=== PATIENT | male | born 1950 | race Hispanic/Latino ===

== ENCOUNTER → 2017-09-16 | Outpatient (CLI) | payer OTHER ==
[~2017-09-16] MED LIST: TAMS0.4C32 PO
== END | disposition home or self-care (01) ==
LOC: RAH 14:53
PROVIDERS: ATTEND Family Medicine
DX: G31.9 Degenerative disease of nervous system, unspecified (principal); J32.0 Chronic maxillary sinusitis; R90.82 White matter disease, unspecified
CPT/HCPCS: 70551

== ENCOUNTER 2019-06-22 07:27 | Day surgery (SDC) | payer OTHER, MEDICARE ==
[2019-06-19 14:34] LABS: BASOPHILS % (AUTO) 0.8 % (0.0-5.0); EOSINOPHILS % (AUTO) 2.5 % (0.0-8.0); HEMATOCRIT 42.9 % (42-54); LYMPHOCYTES % (AUTO) 19.5 % (21.0-51.0); MEAN CORPUSCULAR HEMOGLOBIN 30.8 pg (27.0-33.0); MEAN CORPUSCULAR HGB CONC 34.6 g/dL (32.0-36.0); MONOCYTES % (AUTO) 11.1 % (3.0-13.0); NEUTROPHILS % (AUTO) 66.1 % (40.0-77.0); NUCLEATED RED BLOOD CELLS 0.1 % (0.0-0.19); PLATELET COUNT (AUTO) 143 K/uL (130-400); RED BLOOD CELL COUNT(AUTO) 4.82 MIL/uL (4.50-6.20); RED CELL DISTRIBUTION WIDTH 14.3 % (11.0-15.5); WHITE BLOOD COUNT (AUTO) 6.6 K/uL (4.8-10.8)
[2019-06-19 14:36] VITALS: BP 161/73
[2019-06-19 14:41] LABS: CREATININE 0.9 mg/dL (0.5-1.5); POTASSIUM 4.3 mmol/L (3.5-5.1)
[2019-06-22] VITALS (15 sets, daily range): BP systolic 129–175; BP diastolic 72–93
[~2019-06-22] VITALS: Ht 167.6 cm; Wt 102.1 kg
[~2019-06-22 07:27] MED LIST changes: +APIX5TAB PO; +ATOR10TA69 PO; +CITA-107 PO; +DRON400T2 PO; +LISI-613 PO; +SODIUM CHLORIDE 0.9% 500ML 500 ML IV SCH
[2019-06-22] MEDS ORDERED: SODIUM CHLORIDE 0.9% 1000ML 1,000 ML IV ONE (07:32)
--- NOTE | 2019-06-22 07:40 | NUR ---
PATIENT ARRIVED PATIENT ARRIVED FROM HOME ACCOMPANIED BY SPOUSE. PATIENT AAO X3, RESPIRATIONS UNLABORED, VITAL SIGNS STABLE, DENIES ANY PAIN AT THIS TIME. PROCEDURE EXPLAINED AND VERIFIED WITH PATIENT. HOSPITAL ROUTINE EXPLAINED TO PATIENT AND PATIENT VERIFIED UNDERSTANDING. ALL QUESTIONS/CONCERNS ADDRESSED.
[2019-06-22] MEDS ORDERED: NALOXONE HCL 0.4 MG/1 ML ML ONE (07:45)
[2019-06-22] MEDS ORDERED: FLUMAZENIL 0.1MG/1ML 5ML VIAL IV ONE (07:45)
[2019-06-22] MEDS ORDERED: MIDAZOLAM HCL 1 MG/ML 2ML VIAL ONE ×2 (07:47→08:51)
[2019-06-22] MEDS ORDERED: FENTANYL CITRATE PF 50 MCG/1 ML 2ML VIAL ONE (07:52)
--- NOTE | 2019-06-22 10:30 | NUR ---
CARDIOVERSION TIME OUT DONE AT 10:[address] MARIE AT BEDSIDE 1033 2MG VERSED ADMINISTERED IV PUSH 1034 50MCG FENTANYL ADMINISTERED IV PUSH 1037 1MG VERSED ADMINISTERED IV PUSH 1039 25MCG FENTANYL ADMINISTERED IV PUSH 1040 PATIENT SHOCKED WITH 150 JOULES (CARDIOVERSION) 1041 25MCG FENTANYL ADMINISTERED IV PUSH 1042 PATIENT ADMINISTERED SECOND SHOCK, 200 JOULES (CARDIOVERSION) PATIENT TOLERATED WELL, DENIES ANY PAIN. PATIENT DROWSY BUT RESPONDS TO VERBAL STIMULATION. 1045 DR MARIE OUT OF ROOM AND RECOVERY TIME BEGINS
--- NOTE | 2019-06-22 12:15 | NUR ---
DISCHARGE INSTRUCTIONS DISCHARGE INSTRUCTIONS PROVIDED TO PATIENT AND PATIENT'S SPOUSE. HANDOUTS PROVIDED, FOLLOW UP APPOINTMENT WITH DR SHABAZZ PROVIDED. INSTRUCTED TO RESUME HOME MEDICATIONS. ALL QUESTIONS/CONCERNS ANSWERED. BOTH PATIENT AND PATIENT'S SPOUSE VERBALIZED UNDERSTANDING.
--- NOTE | 2019-06-22 12:40 | NUR ---
PATIENT DISCHARGED PATIENT DISCHARGED FROM FACILITY ACCOMPANIED BY SPOUSE. PATIENT TAKEN TO PRIVATE VEHICLE VIA WHEELCHAIR BY NURSE, PATIENT ABLE TO TRANSFER INTO PRIVATE VEHICLE UNASSISTED. PATIENT DRIVEN IN PRIVATE VEHICLE BY SPOUSE.
== END 2019-06-22 12:40 | disposition home or self-care (01) ==
LOC: DAH 07:27
PROVIDERS: ATTEND Internal Medicine Cardiovascular Disease
DX: I48.19 Other persistent atrial fibrillation (principal); Z79.01 Long term (current) use of anticoagulants; Z79.899 Other long term (current) drug therapy; N40.0 Benign prostatic hyperplasia without lower urinary tract symptoms; I10 Essential (primary) hypertension; Z72.89 Other problems related to lifestyle; Z98.890 Other specified postprocedural states; Z82.49 Family history of ischemic heart disease and other diseases of the circulatory system; Z82.3 Family history of stroke
CPT/HCPCS: 36415; 80048; 85025; 92960; 93005 ×2; A4215; A4216; A4221; A4222; A4223 ×3; A4600; A4606; A4663; J2250; J3010; J7030; 99156; J2310; J3490

== ENCOUNTER 2019-07-21 06:22 | Day surgery (SDC) | payer OTHER, MEDICARE ==
[2019-07-17 09:12] VITALS: BP 150/82
[2019-07-17 09:27] LABS: BASOPHILS % (AUTO) 0.6 % (0.0-5.0); EOSINOPHILS % (AUTO) 2.1 % (0.0-8.0); HEMATOCRIT 47.2 % (42-54); LYMPHOCYTES % (AUTO) 14.8 % (21.0-51.0); MEAN CORPUSCULAR HEMOGLOBIN 29.5 pg (27.0-33.0); MEAN CORPUSCULAR HGB CONC 33.1 g/dL (32.0-36.0); MEAN CORPUSCULAR VOLUME 89.2 fL (79-99); MONOCYTES % (AUTO) 6.4 % (3.0-13.0); NEUTROPHILS % (AUTO) 75.6 % (40.0-77.0); PLATELET COUNT (AUTO) 176 K/uL (130-400); RED BLOOD CELL COUNT(AUTO) 5.29 MIL/uL (4.50-6.20); WHITE BLOOD COUNT (AUTO) 8.5 K/uL (4.8-10.8)
[2019-07-17 09:37] LABS: CREATININE 1.1 mg/dL (0.5-1.5); POTASSIUM 4.4 mmol/L (3.5-5.1)
[~2019-07-21] VITALS: Ht 167.6 cm; Wt 102.9 kg
[2019-07-21] VITALS (11 sets, daily range): BP systolic 117–162; BP diastolic 60–94
[~2019-07-21 06:22] MED LIST changes: -CITA-107 PO; +METO50TA18 PO; -SODIUM CHLORIDE 0.9% 500ML 500 ML IV SCH
[2019-07-21] MEDS ORDERED: SODIUM CHLORIDE 0.9% 1000ML 1,000 ML IV ONE (06:35)
[2019-07-21] MEDS ORDERED: SUCCINYLCHOLINE 200MG/10ML SYR ONE (07:50)
[2019-07-21] MEDS ORDERED: PROPOFOL 10 MG/ML 20ML VIAL IV ONE (07:50)
[2019-07-21] MEDS ORDERED: LIDOCAINE PF 2% 5ML ABBOJECT ONE (07:50)
[2019-07-21] MEDS ORDERED: GLYCOPYRROLATE 1 MG/5 ML SYRINGE ONE (07:51)
--- NOTE | 2019-07-21 09:23 | NUR ---
CARDIOVERSION CARDIOVERSION WITH ANESTHESIA PERFORMED AT BEDSIDE BY DR. SHABAZZ / DR. MARC(ANESTHESIA ) AT BEDSIDE TIME OUT DONE: 08 MED GIVEN : 0828 [place] AT 0831 360 JOULES FINISHED PROCEDURE 0832 RECOVERY START 0833 PATIENT TOLERATED PROCEDURE WELL NO NO ADVERSE REACTIONS. PT CONVERTED , VS STABLE POST PROCEDURE, DR. SHABAZZ SPOKE TO PATIENT SPOUSE ABOUT OUTCOME OF PROCEDURE.
--- NOTE | 2019-07-21 09:33 | NUR ---
dc dc instructions given to pt / pt spouse instructed to decrease metoprolol dose to 1/2 tab daily to equal 25 mg. to f/u with dr. perdomo. and continue rest of home med.s both verbalized understanding.
--- NOTE | 2019-07-21 09:35 | NUR ---
dc pt dc home via wc, no distress noted. denied any pain or discomforts. pt fully awake and alert, pt accompanied by spouse.
== END 2019-07-21 09:35 | disposition home or self-care (01) ==
LOC: DAH 06:22
PROVIDERS: ATTEND Internal Medicine Cardiovascular Disease
DX: I48.19 Other persistent atrial fibrillation (principal); I42.8 Other cardiomyopathies; I10 Essential (primary) hypertension; E66.9 Obesity, unspecified; Z68.36 Body mass index [BMI] 36.0-36.9, adult; Z79.01 Long term (current) use of anticoagulants; Z79.899 Other long term (current) drug therapy; Z82.49 Family history of ischemic heart disease and other diseases of the circulatory system
CPT/HCPCS: 36415; 80048; 85025; 92960; 93005 ×2; A4215; A4216; A4221; A4222; A4223 ×3; A4606; A4663; J0330; J2001; J2704; J3490; J7030

== ENCOUNTER 2019-09-09 08:13 | Day surgery (SDC) | payer OTHER, MEDICARE ==
[2019-09-08 09:06] LABS: BASOPHILS % (AUTO) 0.6 % (0.0-5.0); EOSINOPHILS % (AUTO) 2.7 % (0.0-8.0); HEMATOCRIT 48.1 % (42-54); LYMPHOCYTES % (AUTO) 23.1 % (21.0-51.0); MEAN CORPUSCULAR HEMOGLOBIN 29.5 pg (27.0-33.0); MEAN CORPUSCULAR HGB CONC 33.7 g/dL (32.0-36.0); MEAN CORPUSCULAR VOLUME 87.5 fL (79-99); MONOCYTES % (AUTO) 9.2 % (3.0-13.0); PLATELET COUNT (AUTO) 172 K/uL (130-400); WHITE BLOOD COUNT (AUTO) 5.2 K/uL (4.8-10.8)
[2019-09-08 09:12] VITALS: BP 143/64
[2019-09-08 09:13] LABS: POTASSIUM 4.4 mmol/L (3.5-5.1)
[2019-09-08 09:17] LABS: INR 1.04 (0.85-1.15); PARTIAL THROMBOPLASTIN TIME 26.4 SEC (26.3-35.5); PROTHROMBIN TIME 10.9 SEC (9.6-11.6)
[~2019-09-09] VITALS: Ht 162.6 cm; Wt 104.6 kg
[~2019-09-09 08:13] MED LIST changes: +AMIO200T5 PO; -DRON400T2 PO; +SODIUM CHLORIDE 0.9% 1000ML 1,000 ML IV SCH
[2019-09-09 08:57] VITALS: BP 165/83
--- NOTE | 2019-09-09 09:06 | NUR ---
PROCEDURE PT HERE FOR PRPOCEDURE. DENIES ANY PAIN. AT BEDSIDE.
--- NOTE | 2019-09-09 10:12 | NUR ---
CARDIOVERSION CARDIOVERSION DONE BY Kerline IZQUIERDO, EDGE FINISHER. 1 SHOCK DELIVERED AT 200JOULES WITHOUT SUCCESS. SECOND SHOCK DELIVERED AT 360 JOULES WITH SUCCESS. PT TOLERATED PROCEDURE WELL. DENIES ANY PAIN, SOB.
[2019-09-09] MEDS ORDERED: PROPOFOL 10 MG/ML 20ML VIAL IV ONE (10:16)
[2019-09-09 10:45] VITALS: BP 98/53
[2019-09-09 10:50] VITALS: BP 113/53
[2019-09-09 11:15] VITALS: BP 105/60
[2019-09-09 11:25] VITALS: BP 106/65
--- NOTE | 2019-09-09 11:25 | NUR ---
DISCHARGE ORAL AND WRITTEN DISCHARGE INSTRUCTIONS GIVEN TO PT AND PTS ALONG WITH INSTRUCTIONS. NO OTHER QUESTIONS AT THIS TIME.
== END 2019-09-09 11:35 | disposition home or self-care (01) ==
LOC: DAH 08:13
PROVIDERS: ATTEND Internal Medicine Cardiovascular Disease
DX: I48.19 Other persistent atrial fibrillation (principal); I10 Essential (primary) hypertension; E66.9 Obesity, unspecified; Z68.39 Body mass index [BMI] 39.0-39.9, adult; Z72.89 Other problems related to lifestyle; Z98.890 Other specified postprocedural states; Z79.01 Long term (current) use of anticoagulants; Z79.899 Other long term (current) drug therapy; Z82.49 Family history of ischemic heart disease and other diseases of the circulatory system; Z82.3 Family history of stroke
CPT/HCPCS: 36415; 80048; 85025; 85610; 85730; 92960; 93005; A4215; A4216; A4221; A4222; A4223 ×2; A4606; A4615; A4663; J2704; J7030 ×2

== ENCOUNTER → 2022-01-04 | Outpatient (CLI) | payer OTHER, MEDICARE ==
[~2022-01-04] MED LIST changes: -AMIO200T5 PO; +AMIO200T68 PO; -LISI-613 PO; +LISI20TA24 PO; -SODIUM CHLORIDE 0.9% 1000ML 1,000 ML IV SCH
== END | disposition home or self-care (01) ==
LOC: RAH 14:59
PROVIDERS: ATTEND Orthopaedic Surgery
DX: M17.12 Unilateral primary osteoarthritis, left knee (principal); M25.762 Osteophyte, left knee
CPT/HCPCS: 73700

== ENCOUNTER 2022-02-27 05:31 | Observation (INO) | payer OTHER, MEDICARE ==
[2022-02-21 10:01] LABS: EOSINOPHILS % (AUTO) 5.5 % (0.0-8.0); HEMATOCRIT 48.8 % (42-54); LYMPHOCYTES % (AUTO) 23.2 % (21.0-51.0); MEAN CORPUSCULAR HEMOGLOBIN 29.3 pg (27.0-33.0); MEAN CORPUSCULAR VOLUME 86.2 fL (79-99); MONOCYTES % (AUTO) 8.6 % (3.0-13.0); NEUTROPHILS % (AUTO) 61.3 % (40.0-77.0); PLATELET COUNT (AUTO) 149 K/uL (130-400); RED BLOOD CELL COUNT(AUTO) 5.66 MIL/uL (4.50-6.20); RED CELL DISTRIBUTION WIDTH 13.9 % (11.0-15.5); WHITE BLOOD COUNT (AUTO) 5.1 K/uL (4.8-10.8)
[2022-02-21 10:11] LABS: INR 1.07 (0.85-1.15); PROTHROMBIN TIME 11.6 SEC (9.6-11.6)
[2022-02-21 10:13] LABS: PARTIAL THROMBOPLASTIN TIME 28.5 SEC (26.3-35.5)
[2022-02-21 10:24] LABS: POTASSIUM 4.6 mmol/L (3.5-5.1)
[2022-02-26 13:49] VITALS: BP 151/82
[2022-02-27] VITALS (28 sets, daily range): BP systolic 112–169; BP diastolic 58–98
[~2022-02-27] VITALS: Ht 165.1 cm; Wt 100.3 kg
[~2022-02-27 05:31] MED LIST changes: -AMIO200T68 PO; -ATOR10TA69 PO; +ROSU5TAB12 PO
[2022-02-27] MEDS ORDERED: CEFAZOLIN SODIUM 1 GM VIAL IVP SCH (06:00)
[2022-02-27] MEDS ORDERED: ROPIVICAINE 250MG+KETOROLAC 15MG+EPINEPHRINE 0.3+CLONIDINE 80 IV PRN ×5 (06:00)
[2022-02-27] MEDS: LACTATED RINGERS 1000ML 1,000 ML IV SCH ×4 (06:44→13:00)
[2022-02-27] MEDS ORDERED: PROPOFOL 10 MG/ML 20ML VIAL IV ONE (07:24)
[2022-02-27] MEDS ORDERED: SUCCINYLCHOLINE CHLORIDE 20 MG/ML 10 ML VIAL ONE (07:24)
[2022-02-27] MEDS ORDERED: MIDAZOLAM HCL 1 MG/ML 2ML VIAL ONE ×2 (07:24→10:24)
[2022-02-27] MEDS ORDERED: FENTANYL CITRATE PF 50 MCG/1 ML 2ML VIAL ONE ×2 (07:25→10:17)
[2022-02-27] MEDS ORDERED: ROCURONIUM 10MG/1ML SYR 10 MG/ML ML ONE (07:25)
[2022-02-27] MEDS ORDERED: ROPIVACAINE 0.5% 5MG/ML 30ML IJ ONE (07:27)
[2022-02-27] MEDS ORDERED: TRANEXAMIC ACID 1000MG/10ML ONE (07:35)
[2022-02-27] MEDS ORDERED: DEXAMETHASONE SOD PHOSPHATE 10MG/ML 1ML VIAL ONE (07:40)
[2022-02-27] MEDS ORDERED: ONDANSETRON 4MG INJ IVP PRN (08:00)
[2022-02-27] MEDS ORDERED: MORPHINE 4 MG SYG IVP PRN (08:00)
[2022-02-27] MEDS: 0.9%NACL 1000ML 1,000 ML IV SCH ×2 (08:00→23:47)
[2022-02-27] MEDS ORDERED: HYDROCODONE/ACETAMINOPHEN 5/325 MG TAB PO PRN (08:00)
[2022-02-27] MEDS: ACETAMINOPHEN 500 MG TABLET PO SCH ×3 (08:00→23:44)
[2022-02-27] MEDS ORDERED: EPHEDRINE SULFATE 50 MG/ML AMPULE ONE (08:05)
[2022-02-27] MEDS: LISINOPRIL 20 MG TABLET PO SCH ×2 (09:00→20:45)
[2022-02-27] MEDS: POLYETHYLENE GLYCOL 3350 17 GM POWD.PACK PO SCH (09:00)
[2022-02-27] MEDS: METOPROLOL TARTRATE 50 MG TAB PO SCH ×2 (09:00→20:45)
[2022-02-27] MEDS: FAMOTIDINE 20MG TAB PO SCH ×2 (09:00→20:45)
[2022-02-27] MEDS ORDERED: MEPERIDINE-PF 25 MG/ML SYG ONE (10:09)
[2022-02-27] MEDS: CEFAZOLIN SODIUM 1 GM VIAL IVP SCH ×2 (13:05→20:46)
[2022-02-27] MEDS: TAMSULOSIN HCL 0.4 MG CAP.ER.24H PO SCH (13:05)
[2022-02-27] MEDS: TRAMADOL HCL 50 MG TABLET PO SCH ×2 (13:06→18:52)
[2022-02-27] MEDS: APIXABAN 2.5 MG TABLET PO SCH (20:45)
[2022-02-28] VITALS (8 sets, daily range): BP systolic 114–137; BP diastolic 58–75
[2022-02-28] MEDS: TRAMADOL HCL 50 MG TABLET PO SCH ×5 (00:01→23:54)
[2022-02-28] MEDS: 0.9%NACL 1000ML 1,000 ML IV SCH (04:00)
[2022-02-28 05:19] LABS: HEMATOCRIT 39.6 % (42-54); MEAN CORPUSCULAR HEMOGLOBIN 29.7 pg (27.0-33.0); MEAN CORPUSCULAR HGB CONC 34.8 g/dL (32.0-36.0); MEAN CORPUSCULAR VOLUME 85.2 fL (79-99); RED BLOOD CELL COUNT(AUTO) 4.65 MIL/uL (4.50-6.20); RED CELL DISTRIBUTION WIDTH 13.5 % (11.0-15.5); WHITE BLOOD COUNT (AUTO) 9.7 K/uL (4.8-10.8)
[2022-02-28 05:32] LABS: CREATININE 0.9 mg/dL (0.5-1.5); POTASSIUM 4.4 mmol/L (3.5-5.1)
[2022-02-28] MEDS: TAMSULOSIN HCL 0.4 MG CAP.ER.24H PO SCH (08:08)
[2022-02-28] MEDS: POLYETHYLENE GLYCOL 3350 17 GM POWD.PACK PO SCH (08:08)
[2022-02-28] MEDS: APIXABAN 2.5 MG TABLET PO SCH ×2 (08:08→21:13)
[2022-02-28] MEDS: FAMOTIDINE 20MG TAB PO SCH ×2 (08:08→21:14)
[2022-02-28] MEDS: ACETAMINOPHEN 500 MG TABLET PO SCH ×3 (08:15→23:55)
[2022-02-28] MEDS: METOPROLOL TARTRATE 50 MG TAB PO SCH ×2 (11:19→21:13)
[2022-02-28] MEDS: LISINOPRIL 20 MG TABLET PO SCH ×2 (11:19→21:14)
[2022-02-28] MEDS: KETOROLAC 15MG/ML VIAL (15MG/ML) IV PRN (14:04)
[2022-02-28] MEDS: HYDROCODONE/ACETAMINOPHEN 10/325 MG TAB PO PRN (21:14)
[2022-03-01] VITALS (7 sets, daily range): BP systolic 117–148; BP diastolic 56–82
[2022-03-01] MEDS: TRAMADOL HCL 50 MG TABLET PO SCH ×4 (05:33→23:52)
[2022-03-01] MEDS: METOPROLOL TARTRATE 50 MG TAB PO SCH ×2 (07:33→20:03)
[2022-03-01] MEDS: LISINOPRIL 20 MG TABLET PO SCH ×2 (07:33→20:03)
[2022-03-01] MEDS: POLYETHYLENE GLYCOL 3350 17 GM POWD.PACK PO SCH (07:33)
[2022-03-01] MEDS: FAMOTIDINE 20MG TAB PO SCH ×2 (07:33→20:03)
[2022-03-01] MEDS: TAMSULOSIN HCL 0.4 MG CAP.ER.24H PO SCH (07:34)
[2022-03-01] MEDS: HYDROCODONE/ACETAMINOPHEN 10/325 MG TAB PO PRN ×3 (07:34→22:27)
[2022-03-01] MEDS: APIXABAN 2.5 MG TABLET PO SCH ×2 (07:34→20:03)
[2022-03-01] MEDS: ACETAMINOPHEN 500 MG TABLET PO SCH ×2 (14:00→22:27)
[2022-03-01] MEDS ORDERED: HYDROXYZINE 10 MG TABLET PO PRN (17:00)
[2022-03-01] MEDS: KETOROLAC 15MG/ML VIAL (15MG/ML) IV PRN (20:03)
[2022-03-02 04:34] VITALS: BP 137/73
[2022-03-02] MEDS: ACETAMINOPHEN 500 MG TABLET PO SCH (06:00)
[2022-03-02] MEDS: TRAMADOL HCL 50 MG TABLET PO SCH (06:08)
[2022-03-02] MEDS ORDERED: BISACODYL 10 MG SUPP.RECT RC PRN (08:00)
[2022-03-02] MEDS: FAMOTIDINE 20MG TAB PO SCH (08:16)
[2022-03-02] MEDS: METOPROLOL TARTRATE 50 MG TAB PO SCH (08:16)
[2022-03-02] MEDS: LISINOPRIL 20 MG TABLET PO SCH (08:17)
[2022-03-02] MEDS: TAMSULOSIN HCL 0.4 MG CAP.ER.24H PO SCH (08:17)
[2022-03-02] MEDS: APIXABAN 2.5 MG TABLET PO SCH (08:17)
[2022-03-02] MEDS: POLYETHYLENE GLYCOL 3350 17 GM POWD.PACK PO SCH (08:17)
[2022-03-02] MEDS: HYDROCODONE/ACETAMINOPHEN 10/325 MG TAB PO PRN (08:23)
[2022-03-02 08:25] VITALS: BP 137/76
[2022-03-02] MEDS: KETOROLAC 15MG/ML VIAL (15MG/ML) IV PRN (09:41)
== END 2022-03-02 10:10 | disposition home or self-care (01) ==
LOC: DAH 05:31 → DAHIP 05:32 → DAH 05:32 → 4BH 11:08
PROVIDERS: ADMIT Orthopaedic Surgery; ATTEND Orthopaedic Surgery
DX: M17.12 Unilateral primary osteoarthritis, left knee (principal); Z20.822 Contact with and (suspected) exposure to COVID-19; I48.91 Unspecified atrial fibrillation; E66.9 Obesity, unspecified; M24.562 Contracture, left knee; R42 Dizziness and giddiness; Z68.36 Body mass index [BMI] 36.0-36.9, adult; Z96.652 Presence of left artificial knee joint; Z79.899 Other long term (current) drug therapy; Z98.890 Other specified postprocedural states
CPT/HCPCS: 27447; S2900; 36415; 64447; 76942; 80048; 85025; 85027; 85610; 85730; 87426; 87641; 96374; 96375; 96376; 97039; G0378; J0171; J0330; J0690; J0735; J1100; J1885; J2175; J2250; J2405; J2704; J2795; J3010; J3490; J7030; J7120

== ENCOUNTER → 2023-02-27 | Outpatient (CLI) | payer OTHER, MEDICARE | END | disposition home or self-care (01) | LOC: SHCH 10:37 | PROVIDERS: ATTEND Internal Medicine Cardiovascular Disease | DX: I35.1 Nonrheumatic aortic (valve) insufficiency (principal); I11.9 Hypertensive heart disease without heart failure; I48.0 Paroxysmal atrial fibrillation | CPT/HCPCS: 93306 ==

== ENCOUNTER → 2024-02-28 | Outpatient (CLI) | payer OTHER, MEDICARE ==
[~2024-02-28] MED LIST changes: -ROSU5TAB12 PO; +ROSU5TAB43 PO
== END | disposition home or self-care (01) ==
LOC: RAH 14:10
PROVIDERS: ATTEND Internal Medicine Cardiovascular Disease
DX: Z79.01 Long term (current) use of anticoagulants (principal)
CPT/HCPCS: 70450

== ENCOUNTER → 2024-07-14 | Outpatient (CLI) | payer OTHER, MEDICARE ==
[~2024-07-14] MED LIST changes: -ROSU5TAB43 PO; +ROSU5TAB51 PO
[2024-07-14 12:34] LABS: CREATININE 0.8 mg/dL (0.5-1.3); POTASSIUM 4.1 mmol/L (3.5-5.1)
== END | disposition home or self-care (01) ==
LOC: LAB 09:00
PROVIDERS: ATTEND Internal Medicine Cardiovascular Disease
DX: I20.9 Angina pectoris, unspecified (principal)
CPT/HCPCS: 36415; 80048

== ENCOUNTER 2025-07-13 10:40 | Observation (INO) | payer OTHER, MEDICARE ==
[2025-07-12 11:42] VITALS: BP 126/80; PULSE 91; RESP 14; TEMP 97
[2025-07-12 11:42] LABS: IMMATURE GRANULOCYTE ABSOLUTE 0.02 K/uL (0-1); NUCLEATED RED BLOOD CELLS 0.0 % (0.0-0.19); PLATELET COUNT (AUTO) 151 K/uL (130-400); RED BLOOD CELL COUNT(AUTO) 5.59 MIL/uL (4.50-6.20); RED CELL DISTRIBUTION WIDTH 14.0 % (11.0-15.5); WHITE BLOOD COUNT (AUTO) 7.0 K/uL (4.8-10.8)
[2025-07-12 11:46] LABS: APPEARANCE,URINE CLEAR (CLEAR); GLUCOSE, URINE (UA) NEGATIVE (NEGATIVE); LEUKOCYTE ESTERASE ,URINE NEGATIVE Leu/uL (NEGATIVE); NITRATE,URINE NEGATIVE (NEGATIVE); OCCULT BLOOD,URINE NEGATIVE (NEGATIVE)
[2025-07-12 11:50] LABS: CREATININE 0.9 mg/dL (0.5-1.3); GLOMERULAR FILTR. RATE CALC 89.0 mL/min (>90); GLUCOSE,RANDOM 91.0 mg/dL (70-105); SODIUM SERUM 141.0 mmol/L (136-145); UREA NITROGEN, BLOOD 16.0 mg/dL (7-18)
[2025-07-12 11:53] LABS: INR 1.03 (0.85-1.15)
--- NOTE | 2025-07-12 12:00 | NUR ---
RE: IS INITIAL IS INITIAL TEACHING DONE BY RT ALISON DURING PREOP.
[2025-07-12 12:04] LABS: ADD UA MICROSCOPIC NO
[~2025-07-13] VITALS: Ht 165.1 cm; Wt 105.2 kg
[2025-07-13] VITALS (28 sets, daily range): BP systolic 111–165; BP diastolic 58–94; PULSE 69–118; RESP 15–19; TEMP 97.5–98.2; O2SAT 97–99
[~2025-07-13 10:40] MED LIST changes: +AMLO2.5T4 PO; +ASCO10004 PO; +SEMA1PEN3 SQ
[2025-07-13] MEDS ORDERED: VANCOMYCIN 500MG+NS 100ML 100 ML IV ONE (13:12)
[2025-07-13] MEDS ORDERED: LIDOCAINE PF 100MG/5ML (2%) SYRINGE 5ML ONE (13:19)
[2025-07-13] MEDS ORDERED: MIDAZOLAM HCL 1 MG/ML 2ML VIAL ONE (13:20)
[2025-07-13] MEDS ORDERED: GLYCOPYRROLATE 0.2 MG/ML 5 ML VIAL ONE (13:50)
[2025-07-13] MEDS: VANCOMYCIN 500MG VIAL IJ ONE (14:39)
[2025-07-13] MEDS ORDERED: ALBUMIN (HUMAN) 5% 250 ML IV ONE (15:38)
[2025-07-13] MEDS ORDERED: CALCIUM CARB 500MG PO PRN (16:00)
[2025-07-13] MEDS ORDERED: PROMETHAZINE HCL 25 MG/ML 1ML AMPULE IM PRN (16:00)
[2025-07-13] MEDS ORDERED: FERROUS FUMARATE 324 MG TABLET PO PRN (16:00)
[2025-07-13] MEDS ORDERED: SUCCINYLCHOLINE CHLORIDE 20 MG/ML 10 ML VIAL ONE (16:07)
--- NOTE | 2025-07-13 16:09 | OP ---
Operative Note: DATE OF PROCEDURE: 07/13/25 SURGEON: AUDREY TONG MD ENGRAVING PLATE MAKER: [Janeth Sheppard CFA] ANESTHESIA: [General anesthesia plus regional block] ANESTHESIOLOGIST/IMAGE SCIENTIST: [Junior Caldera CRNA] PREOPERATIVE DIAGNOSIS: [Right knee osteoarthritis] POSTOPERATIVE DIAGNOSIS: [Right knee osteoarthritis] IMPLANTS: [Biomet vanguard. Femur size 65 right PS, tibia size 75 fixed cruciate, tibial liner size 10 x 71/75 PS, patella size 34 x 9 asymmetric] PROCEDURE: [Right total knee arthroplasty] ESTIMATED BLOOD LOSS: [100 mL] INDICATIONS: [The patient is a 74-year-old male with a history of pain to the right knee secondary to osteoarthritis that has been present for several years and is no longer responded to conservative treatment. The patient has been admitted for a right total knee arthroplasty. The procedure was understood, risks, benefits and possible complications and the patient agreed to sign the consent form] DESCRIPTION OF PROCEDURE: [After adequate general anesthesia was achieved and regional block obtained the right lower extremity was prepped and draped in the usual manner previous placement of the tourniquet in the proximal thigh. The extremity was then elevated and exsanguinated with an Esmarch bandage and the tourniquet inflated to 250 mmHg the Esmarch band been then removed. With the knee in flexion a longitudinal incision was then made in the anterior aspect through the skin followed by dissection of the subcutaneous tissue. A bone infusion needle was then inserted just medial to the tibial tuberosity and through this needle we injected into the bone a solution of normal saline 50 mL mixed with 500 mg of vancomycin. The needle was removed. A paramedian approach was then made with the Bovie cautery cutting through the quadriceps tendon, medial patellar retinaculum and patellar tendon retinaculum. The retropatellar tendon fat was then excised and the soft tissue elements of the tibia were elevated subperiosteally and retractors were applied medially and laterally . The anterior and posterior cruciate ligaments were resected. With the use of a drill a starting hole was made in the distal femur entering the intramedullary canal and then after removal of the drill an intramedullary guide was inserted with a 5 degree valgus block that touched the distal femur and to this the distal femoral cutting guide was then applied anteriorly and was secured to the distal femur with the use of pins. The intramedullary guide was then removed and with the use of the oscillating saw we proceeded to resect the distal femur removing the fragments and the guide. The femoral sizer was then applied distally and drill holes were made removing the sizer and the 4-in-1 cutting block was then inserted and the anterior, posterior and chamfer cuts were made removing the fragments and the block. The PS cutting guide was then inserted and the intercondylar cut was made removing the fragment and the guide. The posterior cruciate ligament retractor was then inserted posterior to the tibia and this was brought forward proceeding then to apply the external tibial alignment guide and secured the proximal cutting guide to the tibia with the use of pins. With the use of the oscillating saw the proximal cut to the tibia tibia was made. The bone fragment was removed and the trial tibia plate was chosen. At this point the menisci were removed sharply and with the use of the curved osteotome the posterior osteophytes of the femur were removed. The trial components were then inserted at the femur and tibia with a trial tibial liner bringing the knee into extension noticing that the patient had a very stable knee in flexion, extension and with valgus and varus stress. The knee was maintained in extension and the patella was then addressed proceeding to measure its thickness and then with the use of the oscillating saw we removed eight mm from the articular surface and restored the height with application of a trial component after 3 peg holes were made. The patellofemoral ligament was removed and then the patellofemoral tracking was checked noticing to be abnormal with the patella tilting laterally and for this reason a lateral retinacular release was performed correcting the problem. At this moment all the components were removed, the tibia after the metaphyseal defect was created and while cement was being mixed on the back table we proceeded to irrigate the joint with antibiotic solution and then cover the entry to the femoral canal with a bone plug. Once the cement was ready we proceeded to apply it first to the tibia surface inserting the final component and then to the femoral surface and inserted the final component removing the excess cement and then applying a trial liner bringing the knee into extension for compression. Then we proceeded to irrigate the patella surface and dried it applying then bone cement and the final patellar component was inserted and was secured with application of a clamp. The joint was irrigated with a warm diluted Betadine solution while the cement dried followed by irrigation with antibiotic solution. The trial liner was removed as well as the patellar clamp and we proceeded then to irrigate the posterior aspect of the joint to remove all the remaining debris and the final tibial liner was inserted and locked against the tibia. The range of motion was checked and noticed to be adequate with full extension and flexion, no laxity in valgus or varus stress and with adequate patellofemoral tracking. The patient had no anterior or posterior drawer. The tourniquet was then deflated and this was followed by hemostasis and the wound was then closed with approximation of the quadriceps tendon, patellar retinaculum and patellar tendon retinaculum with #1 Vicryl close stitches alternating with #1 Ethibond stitches, and closure of the subcutaneous tissue with 2-0 Monocryl inverted stitches and the skin was closed with 3-0 Monocryl subcuticularly. The wound was covered with a suction dressing followed by application of an Faraz bandage for compression and the drapes were then removed transferring the patient to the hospital bed and taken to recovery room for follow-up by anesthesia. There were no complications during the procedure.] AUDREY TONG MD Jul 13, 2025 16:08
[2025-07-13] MEDS: MEPERIDINE-PF 25 MG/ML SYG ONE (17:52)
[2025-07-13] MEDS: MEPERIDINE-PF 25 MG/ML SYG IV ONE (18:00)
[2025-07-13] MEDS ORDERED: PHARMACY COMMUNICATION 1 EACH EACH MISC SCH (18:00)
--- NOTE | 2025-07-13 18:25 | NUR ---
PATIENT ARRIVED TO 430 VIA BED FROM PACU. FAMILY AT BEDSIDE. WOUND COVERED RANDOLPH WRAP WITH GALINDO VAC. PATIENT ALERT, FOLLOWS COMMAND AND FALL BACK TO SLEEP. COMPLAINS OF DRY MOUTH. SCD PLACED ON. IS INSTRUCTIONS GIVEN. ICE PACK PLACED ON KNEE. BED AT LOWEST POSITION, CALL LIGHT WITHIN REACH,AND BED LOCK. ROOM ORIENTATION GIVEN TO PATIENT AND FAMILY. FAMILY VERBALIZED UNDERSTATING.
[2025-07-13] MEDS: LACTATED RINGERS 1000ML 1,000 ML IV ONE (19:23)
[2025-07-13] MEDS: SUGAMMADEX SODIUM 200 MG/2 ML VIAL IV ONE (19:24)
[2025-07-13] MEDS: LISINOPRIL 20 MG TABLET PO SCH (19:52)
[2025-07-13] MEDS: 0.9%NACL 1000ML 1,000 ML IV SCH (21:15)
[2025-07-14] VITALS (9 sets, daily range): BP systolic 111–147; BP diastolic 61–83; PULSE 72–92; RESP 16–20; TEMP 97.6–98; O2SAT 98–99
[2025-07-14 03:32] LABS: NUCLEATED RED BLOOD CELLS 0.0 % (0.0-0.19); PLATELET COUNT (AUTO) 135.0 K/uL (130-400); RED BLOOD CELL COUNT(AUTO) 4.29 MIL/uL (4.50-6.20); RED CELL DISTRIBUTION WIDTH 13.5 % (11.0-15.5); WHITE BLOOD COUNT (AUTO) 8.4 K/uL (4.8-10.8)
[2025-07-14 03:41] LABS: CREATININE 0.9 mg/dL (0.5-1.3); GLOMERULAR FILTR. RATE CALC 89.0 mL/min (>90); GLUCOSE,RANDOM 145.0 mg/dL (70-105); SODIUM SERUM 135.0 mmol/L (136-145); UREA NITROGEN, BLOOD 13.0 mg/dL (7-18)
--- NOTE | 2025-07-14 06:46 | NUR ---
DRESSING DR TONG NOTIFIED REGARDING DRESSING BEING SATURATED. STATES HE WILL BE IN TODAY TO CHANGE DRESSING TO HAVE STERI STRIPS AT BEDSIDE.
--- NOTE | 2025-07-14 08:08 | NUR ---
PHYSICIAN ROUNDING DR. TONG ON UNIT TO ASSESS PATIENT. GALINDO DRESSING SATURATED. DR. TONG REMOVED GALINDO DRESSING, CLEANSED AREA WITH PEROXIDE. STERI STRIPS WERE APPLIED TO AREA. BLISTERS NOTED ALONGSIDE INCISION POSSIBLY DUE TO TAPE. NEW GALINDO DRESSING WAS APPLIED. AREA WRAPPED WITH RANDOLPH BANDAGE. PER DR. TONG RANDOLPH BANDAGE TO STAY IN PLACE FOR 24 HOURS.
--- NOTE | 2025-07-14 08:18 | PN ---
Ortho postop day one. This morning patient is awake alert and oriented is at the bedside. He is in no acute distress. The dressing is saturated and this is removed. The incision is cleaned noted to have small blisters along the periphery likely response to adhesive or tape from the florinda dressing. Incision cleaned and Steri-Strips applied. The small blisters in the periphery were ruptured using a sterile hypodermic 26 gauge needle then florinda dressing is reapplied and flashing green. A Faraz bandage is applied to be removed in 24 hours. He has the expected lower extremity edema diffuse ecchymosis. The gastrocnemius is nontender and negative Homans. SCD sleeves are reapplied. Vital signs have remained stable he has been afebrile. Voiding on his own. Laboratory results reviewed noted to have a drop in hemoglobin and hematocrit as expected after TKA. Currently patient is asymptomatic we will continue to observe and address per protocol as necessary. Reinforced incentive spirometry. Reinforced ice present to the extremity. He is pending physical therapy. We discussed with the patient after he has been assessed by therapy we would like for him to spend majority of his day out of bed alternating extension and flexion using the use of footstool. Anticipated discharge goal for patient is home health/PT. Assessment: Status post right total knee arthroplasty. Acute postoperative blood loss anemia. Plan: Continue with Dr. Snow TKA protocol and discharge planning Acute postoperative blood loss anemia addressed with the protocol as necessary Vitals/Labs Vital Signs Date Time Temp Pulse Resp B/P (MAP) Pulse Ox O2 Delivery O2 Flow Rate FiO2 07/14/25 07:58 97.7 81 18 130/61 98 Room Air 07/14/25 04:10 21 07/14/25 00:15 3.0 Laboratory Tests 07/14/25 03:14 Medications Current Medications Cefazolin Sodium 2 gm STK-MED ONCE .ROUTE; Start 07/13/25 at 11:10; Stop 07/13/25 at 11:10; Status DC Lactated Ringer's 1,000 ml @ As Directed STK-MED ONCE IV; Start 07/13/25 at 11:10; Stop 07/13/25 at 11:10; Status DC Cefazolin Sodium 1 gm STK-MED ONCE .ROUTE; Start 07/13/25 at 13:12; Stop 07/13/25 at 13:12; Status DC Vancomycin HCl 100 ml @ As Directed STK-MED ONCE IV; Start 07/13/25 at 13:12; Stop 07/13/25 at 13:12; Status DC Lidocaine HCl 100 mg STK-MED ONCE .ROUTE; Start 07/13/25 at 13:19; Stop 07/13/25 at 13:19; Status DC Propofol 200 mg STK-MED ONCE IV; Start 07/13/25 at 13:20; Stop 07/13/25 at 13:20; Status DC Midazolam HCl 2 mg STK-MED ONCE .ROUTE; Start 07/13/25 at 13:20; Stop 07/13/25 at 13:20; Status DC Rocuronium [place] 50 mg STK-MED ONCE .ROUTE; Start 07/13/25 at 13:20; Stop 07/13/25 at 13:20; Status DC Fentanyl Citrate 100 mcg STK-MED ONCE .ROUTE; Start 07/13/25 at 13:20; Stop 07/13/25 at 13:21; Status DC Ropivacaine 150 mg STK-MED ONCE .ROUTE; Start 07/13/25 at 13:48; Stop 07/13/25 at 13:48; Status DC Acetaminophen 100 ml @ As Directed STK-MED ONCE .ROUTE; Start 07/13/25 at 13:48; Stop 07/13/25 at 13:48; Status DC Ketamine HCl 50 mg STK-MED ONCE .ROUTE; Start 07/13/25 at 13:49; Stop 07/13/25 at 13:49; Status DC Glycopyrrolate 1 mg STK-MED ONCE .ROUTE; Start 07/13/25 at 13:50; Stop 07/13/25 at 13:50; Status DC Rocuronium [place] 50 mg STK-MED ONCE .ROUTE; Start 07/13/25 at 14:38; Stop 07/13/25 at 14:39; Status DC Cefazolin Sodium 2 gm STK-MED ONCE IVPB Last administered on 07/13/25at 14:24; Start 07/13/25 at 14:24; Stop 07/13/25 at 15:02; Status DC Vancomycin HCl 500 mg STK-MED ONCE IJ Last administered on 07/13/25at 14:39; Start 07/13/25 at 14:39; Stop 07/13/25 at 15:02; Status DC Cefazolin Sodium 3 gm STK-MED ONCE IVPB Last administered on 07/13/25at 14:37; Start 07/13/25 at 14:37; Stop 07/13/25 at 15:02; Status DC Fentanyl Citrate 100 mcg STK-MED ONCE .ROUTE; Start 07/13/25 at 15:37; Stop 07/13/25 at 15:37; Status DC Albumin Human 250 ml @ As Directed STK-MED ONCE IV; Start 07/13/25 at 15:38; Stop 07/13/25 at 15:38; Status DC Ondansetron HCl 4 mg AD PRN IVP; Start 07/13/25 at 16:00; Stop 07/13/25 at 18:41; Status DC Metoclopramide HCl 10 mg AD PRN IVP; Start 07/13/25 at 16:00; Stop 07/13/25 at 18:41; Status DC Promethazine HCl 25 mg AD PRN IM; Start 07/13/25 at 16:00; Stop 07/13/25 at 18:41; Status DC Ketorolac Tromethamine 30 mg AD PRN IV; Start 07/13/25 at 16:00; Stop 07/13/25 at 18:41; Status DC Morphine Sulfate 2 mg AD PRN IVP; Start 07/13/25 at 16:00; Stop 07/13/25 at 18:41; Status DC Fentanyl Citrate 25 mcg Q5MIN PRN IVP Last administered on 07/13/25at 16:57; Start 07/13/25 at 16:00; Stop 07/13/25 at 18:41; Status DC Naloxone HCl 0.1 mg AD PRN IVP; Start 07/13/25 at 16:00; Stop 07/13/25 at 18:41; Status DC Sodium Chloride 1,000 ml @ 100 mls/hr Q10H IV; Start 07/13/25 at 16:00; Stop 07/14/25 at 15:59 Polyethylene Glycol 17 gm DAILY PO; Start 07/14/25 at 09:00; Stop 08/13/25 at 08:59 Bisacodyl 10 mg DAILY PRN RC; Start 07/16/25 at 16:00; Stop 08/15/25 at 15:59 Ketorolac Tromethamine 15 mg Q6H PRN IV Last administered on 07/13/25at 19:55; Start 07/13/25 at 16:00; Stop 07/18/25 at 15:59 Tamsulosin HCl 0.4 mg DAILY PO; Start 07/14/25 at 09:00; Stop 07/13/25 at 20:20; Status DC Ferrous Fumarate 324 mg DAILY PRN PO; Start 07/13/25 at 16:00; Stop 08/12/25 at 15:59 Temazepam 15 mg HS PRN PO; Start 07/13/25 at 16:00; Stop 08/12/25 at 15:59 Ondansetron HCl 4 mg Q6H PRN IVP Last administered on 07/13/25at 21:16; Start 07/13/25 at 16:00; Stop 08/12/25 at 15:59 Calcium Carbonate 500 mg Q12H PRN PO; Start 07/13/25 at 16:00; Stop 08/12/25 at 15:59 Diphenhydramine HCl 25 mg Q6H PRN IVP; Start 07/13/25 at 16:00; Stop 08/12/25 at 15:59 Cefazolin Sodium 2 gm Q8H IVP Last administered on 07/14/25at 04:55; Start 07/13/25 at 21:00; Stop 07/14/25 at 05:01; Status DC Oxycodone HCl 5 mg Q4H PRN PO; Start 07/13/25 at 16:00; Stop 07/20/25 at 15:59 Oxycodone HCl 10 mg Q4H PRN PO Last administered on 07/13/25at 17:28; Start 07/13/25 at 16:00; Stop 07/20/25 at 15:59 Tramadol HCl 50 mg Q6H PRN PO Last administered on 07/14/25at 00:15; Start 07/13/25 at 16:00; Stop 07/18/25 at 15:59 Acetaminophen 1,000 mg Q8H PO Last administered on 07/14/25at 00:15; Start 07/13/25 at 16:00; Stop 08/12/25 at 15:59 Succinylcholine Chloride 200 mg STK-MED ONCE .ROUTE; Start 07/13/25 at 16:07; Stop 07/13/25 at 16:08; Status DC Ketorolac Tromethamine 30 mg STK-MED ONCE .ROUTE; Start 07/13/25 at 16:23; Stop 07/13/25 at 16:23; Status DC Fentanyl Citrate 100 mcg STK-MED ONCE .ROUTE; Start 07/13/25 at 16:28; Stop 07/13/25 at 16:28; Status DC Fentanyl Citrate 100 mcg STK-MED ONCE .ROUTE; Start 07/13/25 at 16:51; Stop 07/13/25 at 16:51; Status DC Fentanyl Citrate 100 mcg STK-MED ONCE .ROUTE; Start 07/13/25 at 16:56; Stop 07/13/25 at 16:56; Status DC Morphine Sulfate 4 mg STK-MED ONCE .ROUTE Last administered on 07/13/25at 17:10; Start 07/13/25 at 17:05; Stop 07/13/25 at 17:05; Status DC Hydromorphone HCl 1 mg STK-MED ONCE .ROUTE Last administered on 07/13/25at 17:19; Start 07/13/25 at 17:16; Stop 07/13/25 at 17:16; Status DC Oxycodone HCl 5 mg STK-MED ONCE .ROUTE; Start 07/13/25 at 17:27; Stop 07/13/25 at 17:26; Status DC Pharmacy Profile Note 1 each AD MISC; Start 07/13/25 at 18:00; Stop 07/13/25 at 17:55; Status DC Meperidine HCl 25 mg STK-MED ONCE .ROUTE Last administered on 07/13/25at 17:52; Start 07/13/25 at 17:51; Stop 07/13/25 at 17:51; Status DC Meperidine HCl 25 mg ONCE ONCE IV; Start 07/13/25 at 18:00; Stop 07/13/25 at 18:01; Status DC Amlodipine Besylate 2.5 mg DAILY PO; Start 07/14/25 at 09:00; Stop 08/13/25 at 08:59 Apixaban 5 mg BID PO Last administered on 07/13/25at 19:53; Start 07/13/25 at 21:00; Stop 07/13/25 at 20:18; Status DC Lisinopril 20 mg BID PO Last administered on 07/13/25at 19:52; Start 07/13/25 at 21:00; Stop 08/12/25 at 20:59 Metoprolol Tartrate 75 mg BID PO Last administered on 07/13/25at 19:54; Start 07/13/25 at 21:00; Stop 07/13/25 at 20:21; Status DC Tamsulosin HCl 0.8 mg HS PO Last administered on 07/13/25at 19:53; Start 07/13/25 at 21:00; Stop 08/12/25 at 20:59 Ascorbic Acid 1,000 mg DAILY PO; Start 07/14/25 at 09:00; Stop 08/13/25 at 08:59 Atorvastatin Calcium 10 mg HS PO Last administered on 07/13/25at 19:54; Start 07/13/25 at 21:00; Stop 08/12/25 at 20:59 Apixaban 5 mg BID PO; Start 07/14/25 at 09:00; Stop 08/13/25 at 08:59 Metoprolol Tartrate 50 mg BID PO; Start 07/13/25 at 21:00; Stop 08/12/25 at 20:59 Metoprolol Tartrate 25 mg BID PO; Start 07/13/25 at 21:00; Stop 08/12/25 at 20:59 ROBBIE RIZZO [facility] Jul 14, 2025 08:18
[2025-07-14] MEDS: amLODIPine 2.5 MG TAB PO SCH (08:42)
[2025-07-14] MEDS: ASCORBIC ACID 500 MG TAB PO SCH (08:54)
--- NOTE | 2025-07-14 11:43 | NUR ---
D/C PLAN CM spoke to patient regarding d/c planning. Patient reports he is semi independent with ADLs. States his daughter is his provider and she assists with ADLs. States his spouse is also available to assist as needed. Patient prefers returning home with home health. CM verified home address and offered in network agency choices. CM obtained [facility] for any in [facility]. CM faxed referral to [facility]. Patient reports having the following DME: standard walker (no wheels), rollator walker, and wheelchair. Patient declined bedside commode. No other needs identified. CM to f/u.
--- NOTE | 2025-07-14 14:42 | NUR ---
CM NOTE CM spoke to Nusrat with [employer]. States patient has been accepted. CM f/u with patient and spouse. Spouse now requesting outpatient clinic services. CM explained that MD may not agree with ordering o/p services. Explained that patient may need to start with home health PT and then transition to outpatient services. Patient and spouse verbalized understanding. CM updated Vladislav Manzanares SENIOR CARE SPECIALIST via secure message. Spouse states she will be speaking to MD in the morning. CM updated primary nurse.
--- NOTE | 2025-07-14 15:00 | NUR ---
ORTHO COORDINATOR: TEACHING REGARDING DVT AND PNEUMONIA PREVENTION, PAIN EXPECTATIONS AND PAIN MANAGEMENT. PATIENT IN BED, AT BEDSIDE. B SCD SLEEVES APPLIED AND FUNCTIONING. RANDOLPH WRAP TO RIGHT KNEE, ICE TO RIGHT KNEE. GALINDO SYSTEM FUNCTIONING, LIGHT FLASHING GREEN. PATIENT AND STATED LAST SURGEON DISCHARGED PATIENT HOME AND HE ATTENDED OUTPATIENT PHYSICAL THERAPY. REVIEWED HOME HEALTH PHYSICAL THERAPY PROCESS, QUESTIONS ANSWERED. PATIENT INTENDS TO DISCHARGE HOME WITH HOME HEALTH PHYSICAL THERAPY. PATIENT REPORTS PASSING GAS, NO BOWEL MOVEMENT. SET EXPECTATION FOR PATIENT TO SHOWER ONCE SURGEON GIVES THE OK TO REMOVE RANDOLPH BANDAGE (24 HOURS), RATIONALE PROVIDED. PAIN EXPECTATIONS REALISTIC PATIENT HAD LEFT TKA. INSTRUCTED GALINDO SYSTEM IS TO BE REMOVED 7 DAYS AFTER SURGERY, SATURDAY. PATIENT RETURN DEMONSTRATED PROPER USE OF INCENTIVE SPIROMETER AND VERBALIZED PROPER FREQUENCY OF USE. PATIENT RETURN DEMONSTRATED PROPER FOOT FLEXION AND EXTENSION EXERCISES, RATIONALE PROVIDED. PATIENT ENCOURAGED ONCE DISCHARGED TO CONTINUE USE OF INCENTIVE SPIROMETER UNTIL ACTIVITY REACHED PRESURGERY LEVEL, TO CONTINUE TO PREMEDICATE PRIOR TO PHYSICAL THERAPY AND PERIODS OF HIGH ACTIVITY, TO CONTINUE INCREASING AMBULATION AND MAINTAIN HYDRATION. PATIENT AND SPOUSE VERBALIZED UNDERSTANDING TO ALL TEACHING. NO ADDITIONAL QUESTIONS OR CONCERNS AT THIS TIME.
[2025-07-15 04:25] VITALS: BP 118/66; PULSE 76; RESP 18; TEMP 97.9
[2025-07-15 08:00] VITALS: BP 117/66; PULSE 73; RESP 18; TEMP 97.9
--- NOTE | 2025-07-15 11:38 | NUR ---
IV ACCESS PATIENT ALERTED AT BEDSIDE THAT HE PULLED OUT HIS IV LAST NIGHT AND DID NOT ALERT NURSE, WAS FOUND UPON ASSESSMENT
[2025-07-15 12:00] VITALS: BP 118/61; PULSE 68; RESP 18; TEMP 98
--- NOTE | 2025-07-15 14:00 | NUR ---
ADVISED DR TONG AND PRIMARY RN THAT PATIENT HAS BEEN ACCEPTED BY [facility],
[2025-07-15] MEDS ORDERED: OXYC-38 PO (15:34)
--- NOTE | 2025-07-15 15:40 | DS ---
[Date of admission: 07/13/2025 Date of discharge: 07/15/2025 Final diagnosis: Right Knee osteoarthritis Surgical procedures: Right total Knee arthroplasty on 07/13/2025 Summary of History and Physical: The patient is a 74 year-old male with history of severe arthrosis to the right knee that has been present for several years and has been treated conservatively with no longer adequate response to treatment. The patient is being admitted for total knee arthroplasty. Previous medical history: HTN, Hypercholesterolemia, Heart disease. A-Fib, obesity Previous surgical history: L TKA Family history: HTN, Heart disease Social history: Negative for use of tobacco or alcohol. Allergies: NKDA. Review of system: Negative on admission Hospital course: The patient was admitted and taken to the operating room for a total knee arthroplasty, procedure that went uneventful. Postoperatively the patient remained hemodynamically stable and afebrile. The patient received antibiotic and anticoagulation prophylaxis as per protocol. The patient was evaluated by physical therapy and started rehabilitation treatment with ambulation with the use of walker, weightbearing as tolerated, range of motion exercises and bed transfers. The patient was also evaluated by case management and arrangements were made for discharge. The patient tolerated diet well. On postop day #2 all the arrangements were completed. The dressing was changed and the wound was noted to be stable and the patient was dismissed. Condition on discharge: Good Disposition: The patient will be dismissed home with home health. Follow-up will be done at the office in 3 weeks. The patient is to continue with physical therapy and rehabilitation at home and be ambulatory with the use of a walker, weightbearing as tolerated. Continue taking pain medication as instructed as well as his standard anticoagulation treatment for AFib. Continue with home medications also as instructed and continue with pre admission diet.] AUDREY TONG MD Jul 15, 2025 15:40
[2025-07-15 16:00] VITALS: BP 112/63; PULSE 89; RESP 16; TEMP 97.9
--- NOTE | 2025-07-15 17:13 | NUR ---
REPORT TO [facility] CALLED REPORT TO [facility] LEFT MESSAGE WITH ANSWERING SERVICE FOR CALL BACK
--- NOTE | 2025-07-15 17:13 | NUR ---
REPORT TO HOME [facility]ALTH CALL BACK FROM [facility] FOR REPORT SPOKE TO MAMTA VÁZQUEZ, GARO CALLBACK NUMBER [phone] ALL QUESTIONS ANSWERED
--- NOTE | 2025-07-15 17:32 | NUR ---
DISCHARGE PATIENT WAS DISCHARGED HOME WITH HOME HEALTH REPORT CALLED TO [facility] ALL QUESTIONS WERE ANSWERED AT BEDSIDE PATIENT GIVEN ALL FOLLOW UP APPOINTMENT DATE AND TIME PATIENT STATED PAIN WAS AT A 4 DUE TO CHANGING POSITIONS GALINDO DRESSING WAS DRY WITH MINIMAL DRAINAGE CIRCLED, DRY SANGUINEOS NO IV TO DISCONTINUE PATIENT WAS ALERT AND ORIENTATED AND IN NO DISTRESS ALL BELONGINGS WERE TAKEN
== END 2025-07-15 17:35 | disposition home health service (06) ==
LOC: DAH 10:40 → UNDOADMOB 10:41 → DAH 10:41 → DAHIP 10:41 → 4AH 18:25
PROVIDERS: ADMIT Orthopaedic Surgery; ATTEND Orthopaedic Surgery
DX: M17.11 Unilateral primary osteoarthritis, right knee (principal); M25.561 Pain in right knee; I10 Essential (primary) hypertension; E78.00 Pure hypercholesterolemia, unspecified; D62 Acute posthemorrhagic anemia; E66.9 Obesity, unspecified; Z68.38 Body mass index [BMI] 38.0-38.9, adult; Z79.899 Other long term (current) drug therapy; Z98.890 Other specified postprocedural states
CPT/HCPCS: 80048 ×2; 85025; 85610; 87086; 81003; 36415 ×2; 87641; 27447; 96374; 96375; 64447; 88311; 88304; 96376; 85027; 97161; 97116 ×4; 97530 ×4; G0378 ×50; A4663; J7120 ×2; P9045; J0690 ×6; J3010 ×5; J1171; J0330; J3490 ×4; J2003; J2250; J2704; J2405; J2270; J1885 ×2; J2175; J2795; J3373 ×2; A9272; A4649 ×3; A4930 ×2; C1713; C1776; A5120; A4215; A4223 ×2; A4213; A4222; A4221; A4216